=== PATIENT | female | born 1950 | race Caucasian/White ===

== ENCOUNTER → 2017-02-21 | Outpatient (CLI) | payer MEDICARE ==
[2016-11-12 16:36] VITALS: BP 138/80
--- NOTE | 2017-02-21 15:47 | RAD ---
Chest, 2 views, 02/21/2017: History: Flu syndrome, chills, sore throat Comparison is made to a study from 11/12/2016. The heart size and pulmonary vascularity are normal. There is mild tortuosity of the thoracic aorta. A calcified granuloma is present in the right upper lobe. There is mild linear atelectasis or scarring in the lung bases. The upper lung mejia are clear. There is no evidence of pleural fluid. Surgical clips are present in the upper abdomen and in the GE junction region. A right shoulder prosthesis is in place. IMPRESSION: Minimal bibasilar linear atelectasis or scarring.
== END | disposition home or self-care (01) ==
LOC: DXRADRC 15:10
PROVIDERS: ATTEND Nurse Practitioner Family
DX: J11.1 Influenza due to unidentified influenza virus with other respiratory manifestations (principal)
CPT/HCPCS: 71020

== ENCOUNTER → 2017-05-16 | Outpatient (CLI) | payer MEDICARE ==
[2016-11-12 16:36] VITALS: BP 138/80
--- NOTE | 2017-05-16 13:24 | RAD ---
EXAM: Abdomen 2 views. HISTORY: Right abdominal pain. COMPARISON: None. FINDINGS: Supine and upright views of the abdomen are obtained. There are postsurgical changes at the hiatus and in the left upper quadrant. Cholecystectomy clips are also noted. There is no pneumoperitoneum. There are no distended small bowel loops or significant air fluid levels. There is gas distally. Atherosclerotic calcifications are noted. There is mild lumbar levoscoliosis with moderate to severe degenerative changes inferiorly. IMPRESSION: 1. No evidence of obstruction.
== END | disposition home or self-care (01) ==
LOC: DXRADRC 12:03
PROVIDERS: ATTEND Nurse Practitioner Family
DX: R10.9 Unspecified abdominal pain (principal)
CPT/HCPCS: 74020

== ENCOUNTER → 2017-05-18 | Outpatient (CLI) | payer MEDICARE ==
[2016-11-12 16:36] VITALS: BP 138/80
[~2017-05-18] MED LIST: IOHEXOL 240 MG/ML 50ML VIAL. ONE; IOHEXOL 300 MG/ML 75 ML VIAL. IV ONE
[2017-05-18 08:42] LABS: CREATININE 1.1 mg/dL (0.6-1.0); GFR 49.8
--- NOTE | 2017-05-18 10:54 | RAD ---
INDICATION: Abdominal pain COMPARISON: None. TECHNIQUE: Axial CT images were obtained through the abdomen and pelvis with intravenous contrast. Coronal reformations were processed. FINDINGS: Mild linear opacities lung bases partially seen, could be atelectasis. Small hiatal hernia is suspected. Operative changes to the upper abdomen with metallic density structures. Severe calcific atherosclerosis. Mild intrahepatic and extrahepatic bile duct dilation postcholecystectomy. 58 mm cystic lesion right lobe of the liver. There are multiple additional low-attenuation lesions scattered throughout the liver measuring up to about a centimeter which are too small to characterize on this exam. No peripancreatic edema. Subcentimeter low-attenuation lesion of spleen. Low-attenuation focus along the left renal cortex posteriorly, approximately 1 cm. No hydronephrosis. Bladder is partially distended. Colonic diverticulosis. The appendix is not well seen. Suspect a tiny anterior abdominal wall hernia to the right of midline. Degenerative changes of spine with osteophyte formation. Degenerative changes of hips. Grade 1-2 anterolisthesis of L4 on 5. IMPRESSION: 1. No evidence of bowel obstruction. 2. Intrahepatic and extrahepatic biliary ductal dilatation is seen postcholecystectomy. This is a commonly seen finding post cholecystectomy but would correlate with lab markers to ensure that there is not a pathologic process such as a distal stricture or lesion. 3. Couple of cystic lesions are identified within the liver as well as some low-attenuation lesions which are too small to characterize on this exam. 4. Focus of low attenuation the posterior aspect of left kidney. Could be a small low-attenuation lesion. Follow-up nonemergent ultrasound renal or renal protocol MRI could further evaluate to ensure that this does not have a solid component. PQRS Compliance Statement: One or more of the following individualized dose reduction techniques were utilized for this examination: 1. Automated exposure control 2. Adjustment of the mA and/or kV according to patient size 3. Use of iterative reconstruction technique
== END | disposition home or self-care (01) ==
LOC: CT 07:51
PROVIDERS: ATTEND Nurse Practitioner Family
DX: K57.30 Diverticulosis of large intestine without perforation or abscess without bleeding (principal); I70.8 Atherosclerosis of other arteries; K76.89 Other specified diseases of liver
CPT/HCPCS: 36415; 74177; 82565; Q9966; Q9967

== ENCOUNTER → 2017-06-08 | Outpatient (CLI) | payer MEDICARE ==
[2016-11-12 16:36] VITALS: BP 138/80
--- NOTE | 2017-06-08 11:47 | RAD ---
CT scan abdomen with contrast 06/08/2017 Clinical history: Abdominal hernia. Technique: After the oral and intravenous administration of contrast, contiguous, 5 mm axial sections were obtained through abdomen and pelvis. 60 cc of Omnipaque 300 were administered intravenously this examination. One or more of the following individualized dose reduction techniques were utilized for this study: 1. Automated exposure control. 2. Adjustment of the mA and/or kV according to patient size. 3. Use of iterative reconstruction technique. Findings: Comparison study is dated 05/18/2017. Apparently the majority of the intravenous contrast which was injected infiltrated during the injection limiting enhancement on this study. Images through the lung bases demonstrate minimal dependent subsegmental atelectasis bilaterally. There is mild cardiomegaly. A 5.8 cm low-attenuation lesion is seen involving the right lobe of the liver. This is consistent with a hepatic cyst. It is unchanged. The spleen, pancreas, adrenal glands and right kidney are within normal limits. A 8 mm rounded low-attenuation lesion is seen involving the mid/lower pole of the left kidney. This likely represents a cyst. It is unchanged. Mild to moderate atherosclerotic plaque formation is seen involving the abdominal aorta. The abdominal aorta tapers normally. Surgical clips are seen within the gallbladder fossa consistent with a cholecystectomy. Postsurgical changes are seen surrounding the stomach. No free fluid or free air is seen within the abdomen. There is no evidence of bowel obstruction. The patient is status post ventral hernia repair. The osseous structures are unchanged. Impression: No acute abnormality is seen.
== END | disposition home or self-care (01) ==
LOC: CT 09:59
PROVIDERS: ATTEND Nurse Practitioner Family
DX: K46.9 Unspecified abdominal hernia without obstruction or gangrene (principal)
CPT/HCPCS: 74160; Q9966; Q9967

== ENCOUNTER → 2017-07-08 | Outpatient (CLI) | payer MEDICARE ==
[2016-11-12 16:36] VITALS: BP 138/80
--- NOTE | 2017-07-08 14:35 | RAD ---
Lumbar spine radiograph 07/08/2017 at 1411 hours Indication: Lumbar pain for 2 weeks. Comparison: CT abdomen 06/08/2017 Technique: 3 views of the lumbar spine are provided. Findings: There are 5 nonrib-bearing lumbar type vertebral bodies. There is disc height loss and endplate sclerosis at L5-S1. There is grade 1 anterolisthesis of L5 on S1. There is advanced facet arthropathy in the lower lumbar spine. No acute fracture is identified. There is moderate osseous neuroforaminal stenosis at L5-S1. Surgical clips are identified in the upper abdomen. Nondilated small bowel loops are present. Impression: Advanced degenerative disc disease at L5-S1 with grade 1 anterolisthesis of L5 on S1, likely secondary to advanced facet arthropathy. There is suggestion of at least moderate osseous foraminal stenosis at this level.
== END | disposition home or self-care (01) ==
LOC: DXRADRC 14:03
PROVIDERS: ATTEND Nurse Practitioner Family
DX: M51.27 Other intervertebral disc displacement, lumbosacral region (principal)
CPT/HCPCS: 72100

== ENCOUNTER → 2017-08-23 | Outpatient (CLI) | payer MEDICARE ==
[2016-11-12 16:36] VITALS: BP 138/80
== END | disposition home or self-care (01) ==
LOC: SURG 14:06
PROVIDERS: ATTEND Anesthesiology
DX: M47.816 Spondylosis without myelopathy or radiculopathy, lumbar region (principal); M43.16 Spondylolisthesis, lumbar region; M54.16 Radiculopathy, lumbar region; M79.1 Myalgia; I10 Essential (primary) hypertension; Z87.891 Personal history of nicotine dependence
CPT/HCPCS: 99204

== ENCOUNTER → 2017-09-06 | Outpatient (CLI) | payer MEDICARE ==
[2016-11-12 16:36] VITALS: BP 138/80
[~2017-09-06] MED LIST changes: +0.9 % SODIUM CHLORIDE 10 ML VIAL ONE; +BUPIVACAINE MPF 0.25% 10 ML VIAL. ONE; +DEXAMETHASONE SOD PHOS 4 MG/ML VIAL ONE; -IOHEXOL 240 MG/ML 50ML VIAL. ONE; +IOHEXOL 300 MG/ML 50 ML VIAL. ONE; -IOHEXOL 300 MG/ML 75 ML VIAL. IV ONE; +LIDOCAINE 1% PF 30 ML VIAL. ONE
== END | disposition home or self-care (01) ==
LOC: SURG 13:54
PROVIDERS: ATTEND Anesthesiology
DX: M54.16 Radiculopathy, lumbar region (principal)
CPT/HCPCS: 64483; 64484; J1100; J2001; J3490; Q9967

== ENCOUNTER → 2017-10-04 | Outpatient (CLI) | payer MEDICARE ==
[2016-11-12 16:36] VITALS: BP 138/80
== END | disposition home or self-care (01) ==
LOC: SURG 11:23
PROVIDERS: ATTEND Anesthesiology
DX: M54.16 Radiculopathy, lumbar region (principal); M47.816 Spondylosis without myelopathy or radiculopathy, lumbar region; M46.1 Sacroiliitis, not elsewhere classified; B02.29 Other postherpetic nervous system involvement; J32.9 Chronic sinusitis, unspecified; I10 Essential (primary) hypertension; Z90.710 Acquired absence of both cervix and uterus; Z90.49 Acquired absence of other specified parts of digestive tract
CPT/HCPCS: 99214

== ENCOUNTER → 2017-11-08 | Outpatient (CLI) | payer MEDICARE ==
[2016-11-12 16:36] VITALS: BP 138/80
[~2017-11-08] MED LIST changes: -0.9 % SODIUM CHLORIDE 10 ML VIAL ONE
== END | disposition home or self-care (01) ==
LOC: SURG 13:31
PROVIDERS: ATTEND Anesthesiology
DX: M54.16 Radiculopathy, lumbar region (principal); M19.90 Unspecified osteoarthritis, unspecified site; D64.9 Anemia, unspecified; Z90.710 Acquired absence of both cervix and uterus; Z87.01 Personal history of pneumonia (recurrent); Z72.89 Other problems related to lifestyle; Z88.6 Allergy status to analgesic agent
CPT/HCPCS: 64483; 64484; J1100; J2001; J3490; Q9967

== ENCOUNTER → 2017-12-13 | Outpatient (CLI) | payer MEDICARE ==
[2016-11-12 16:36] VITALS: BP 138/80
== END | disposition home or self-care (01) ==
LOC: SURG 14:34
PROVIDERS: ATTEND Anesthesiology
DX: M54.16 Radiculopathy, lumbar region (principal); I10 Essential (primary) hypertension; G89.4 Chronic pain syndrome; Z87.891 Personal history of nicotine dependence; Z90.49 Acquired absence of other specified parts of digestive tract
CPT/HCPCS: 99214

== ENCOUNTER → 2017-12-29 | Outpatient (CLI) | payer MEDICARE ==
[2016-11-12 16:36] VITALS: BP 138/80
--- NOTE | 2017-12-30 14:10 | RAD ---
DATE: 12/29/2017 EXAM: MAMMO LEE SCREENING BILATERAL HISTORY: Routine screening COMPARISON: None available This study was interpreted with the benefit of Computerized Aided Detection (CAD) The breast parenchyma shows scattered fibroglandular densities. Breast parenchyma level B. FINDINGS: 2-D and 3-D tomosynthesis imaging was performed in CC and MLO projections. The residual fibroglandular tissues are somewhat nodular in character. No suspicious breast densities are seen. Scattered benign type calcifications are present. No malignant type microcalcifications are evident. IMPRESSION: There is no mammographic evidence of malignancy in either breast. BI-RADS CATEGORY: 2 BENIGN FINDING(S) RECOMMENDED FOLLOW-UP: 12M 12 MONTH FOLLOW-UP PQRS compliance statement: Patient information was entered into a reminder system with a target due date for the next mammogram. Mammography is a sensitive method for finding small breast cancers, but it does not detect them all and is not a substitute for careful clinical examination. A negative mammogram does not negate a clinically suspicious finding and should not result in delay in biopsying a clinically suspicious abnormality. "Our facility is accredited by the [employer] Mammography Program."
== END | disposition home or self-care (01) ==
LOC: MAMMO 14:59
PROVIDERS: ATTEND Nurse Practitioner Family
DX: Z12.31 Encounter for screening mammogram for malignant neoplasm of breast (principal)
CPT/HCPCS: 77063; 77067

== ENCOUNTER → 2018-05-15 | Outpatient (CLI) | payer MEDICARE ==
[2016-11-12 16:36] VITALS: BP 138/80
--- NOTE | 2018-05-15 17:27 | RAD ---
INDICATION: Follow-up spine instrumentation. TECHNIQUE: 3 views of the lumbosacral spine are submitted for review. Comparison preoperative film is from July 08, 2017. FINDINGS: Pedicle screw and camila instrumentation is noted at L4-L5 and hardware appears well seated. There may have been partial laminectomy on the right at this level. Grade 1 anterolisthesis is noted at L4-L5, improved from prior exam. There is otherwise no change in alignment. There is no fracture. Endplate spurring and facet hypertrophy are again noted. 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 IMPRESSION: Postsurgical changes at L4-L5. Stable degenerative changes. There is no evidence of an acute fracture or dislocation. Electronically signed by: Yaw Jimenez MD (05/15/2018 5:24 PM) [facility]
== END | disposition home or self-care (01) ==
LOC: DXRAD 15:16
PROVIDERS: ATTEND Neurological Surgery
DX: M47.896 Other spondylosis, lumbar region (principal); I10 Essential (primary) hypertension; F41.9 Anxiety disorder, unspecified; Z98.890 Other specified postprocedural states; Z86.2 Personal history of diseases of the blood and blood-forming organs and certain disorders involving the immune mechanism; Z87.891 Personal history of nicotine dependence; Z90.49 Acquired absence of other specified parts of digestive tract; Z90.710 Acquired absence of both cervix and uterus
CPT/HCPCS: 72100

== ENCOUNTER → 2018-10-09 | Outpatient (CLI) | payer OTHER ==
[2016-11-12 16:36] VITALS: BP 138/80
--- NOTE | 2018-10-09 16:33 | RAD ---
Renal sonography Clinical indications: Follow-up of renal cyst. COMPARISON: June 08, 2017 CT study. FINDINGS: The longitudinal and AP and transverse dimensions of the right kidney are 10.7 cm and 5.6 cm and 5.2 cm respectively. The longitudinal AP and transverse dimensions of the left kidney are 9.5 cm and 5.4 cm and 5.0 cm respectively. There is a small lower pole left renal cyst measuring 7 mm in greatest dimension. No other renal mass is seen. No hydronephrosis or perinephric fluid collection is seen on either side. The urinary bladder is mildly distended measuring 59 cc. No intraluminal echodensities or masses are seen. IMPRESSION: No significant change in size of small cyst of the lower pole of the left kidney. Electronically signed by: Stephen Espinosa MD (10/09/2018 4:29 PM) [facility]
== END | disposition home or self-care (01) ==
LOC: US 08:52
PROVIDERS: ATTEND Urology
DX: N28.1 Cyst of kidney, acquired (principal); N32.89 Other specified disorders of bladder
CPT/HCPCS: 76770

== ENCOUNTER → 2018-12-26 | Outpatient (CLI) | payer OTHER ==
[2016-11-12 16:36] VITALS: BP 138/80
--- NOTE | 2018-12-26 11:04 | RAD ---
EXAM: Right hip, 2 views. HISTORY: Pain. COMPARISON: None. FINDINGS: 2 views of the right hip are obtained. There is severe superior right hip joint space narrowing with subchondral sclerosis, subchondral cyst formation, marginal osteophytosis and bony remodeling. There is no fracture, dislocation or subluxation. There are clips within the right inguinal region. There is partial visual location of lumbar spinal fusion instrumentation. IMPRESSION: 1. Severe right hip osteoarthritis with associated bony remodeling. 2. No acute osseous finding. Electronically signed by: Sierra Harrison MD (12/26/2018 11:01 AM) [place] [id number]
== END | disposition home or self-care (01) ==
LOC: PMG 10:28
PROVIDERS: ATTEND Physician Assistant Medical
DX: M16.11 Unilateral primary osteoarthritis, right hip (principal); M25.851 Other specified joint disorders, right hip; M25.751 Osteophyte, right hip
CPT/HCPCS: 73502

== ENCOUNTER → 2019-06-26 | Outpatient (CLI) | payer MEDICARE ==
[2016-11-12 16:36] VITALS: BP 138/80
--- NOTE | 2019-06-26 23:32 | RAD ---
FOOT LEFT 3V DATE: 06/26/2019 6:34 PM INDICATION: Foot pain COMPARISON: None. FINDINGS: Bones: There is no evidence of acute fracture or dislocation. Postoperative changes along the medial aspect of the first metatarsal head. Joints: Mild multifocal joint space narrowing Miscellaneous: None. IMPRESSION: No evidence of acute fracture. Electronically signed by: Avi Licea MD (06/26/2019 11:29 PM) [id number]
== END | disposition home or self-care (01) ==
LOC: RAD 18:28
PROVIDERS: ATTEND Family Medicine
DX: M79.672 Pain in left foot (principal)
CPT/HCPCS: 73630

== ENCOUNTER 2019-07-02 13:04 | Emergency (ER) | payer MEDICARE ==
[~2019-07-02] VITALS: Ht 157.5 cm; Wt 88.0 kg
[2019-07-02] MEDS ORDERED: HYDR-3165 PO (13:42)
--- NOTE | 2019-07-02 13:43 | PHYS DOC ---
Past History Past Medical History: CVA, [place], Other Past Surgical History: Cholecystectomy, Hysterectomy, Other Alcohol Use: None Drug Use: None Adult General Chief Complaint Chief Complaint: KNEE SWELLING [facility] HPI 69-year-old female presents with left knee pain. The patient has had chronic knee problems in the past. She has had intermittent swelling in this knee over the last several days. She has been wrapping it with an Pranav wrap. The patient worked 8 hours yesterday. 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 When she tried to urinate go to work and put weight on the knee, the pain was just more than she can handle. She has been taking 6 ibuprofen at a time. She is also taking Tylenol. She did take one tramadol last night that she had left from a previous prescription. It allowed her to go to sleep but she still had pain while lying in bed. She denies fall or trauma. She is overweight. She has had her right hip replaced and her right shoulder. She had no trauma prior to these either. She has not had any imaging of the knee. She denies fever or chills. Review of Systems Review of Systems Constitutional: Denies fever or chills [] Eyes: Denies change in visual acuity, redness, or eye pain [] HENT: Denies nasal congestion or sore throat [] Respiratory: Denies cough or shortness of breath [] Cardiovascular: No additional information not addressed in HPI [] GI: Denies abdominal pain, nausea, vomiting, bloody stools or diarrhea [] : Denies dysuria or hematuria [] Musculoskeletal: Left knee pain[] Integument: Denies rash or skin lesions [] Neurologic: Denies headache, focal weakness or sensory changes [] Endocrine: Denies polyuria or polydipsia [] All other systems were reviewed and found to be within normal limits, except as documented in this note. Allergies Allergies Allergies Coded Allergies Type Severity Reaction Last Updated Verified codeine Allergy Intermediate 07/02/19 Yes Physical Exam Physical Exam Constitutional: Well developed, well nourished, no acute distress, non-toxic appearance. [] HENT: Normocephalic, atraumatic, bilateral external ears normal, oropharynx moist, no oral exudates, nose normal. [] Eyes: PERRLA, EOMI, conjunctiva normal, no discharge. [] Neck: Normal range of motion, no tenderness, supple, no stridor. [] Cardiovascular:Heart rate regular rhythm, no murmur [] Lungs & Thorax: Bilateral breath sounds clear to auscultation [] Abdomen: Bowel sounds normal, soft, no tenderness, no masses, no pulsatile masses. [] Skin: Warm, dry, no erythema, no rash. [] Back: No tenderness, no CVA tenderness. [] Extremities: Tenderness on the medial aspect of the left knee. Some swelling. No ecchymosis. Ligaments have solid end feel. No pain with varus and valgus stress.[] Neurologic: Alert and oriented X 3, normal motor function, normal sensory f unction, no focal deficits noted. [] Psychologic: Affect normal, judgement normal, mood normal. [] Current Patient Data Vital Signs Vital Signs Date Time Temp Pulse Resp B/P (MAP) Pulse Ox O2 Delivery O2 Flow Rate FiO2 07/02/19 13:14 97.9 78 20 100 Room Air EKG EKG [] Radiology/Procedures Radiology/Procedures [] Course & Med Decision Making Course & Med Decision Making Pertinent Labs and Imaging studies reviewed. (See chart for details) The patient's x-rays negative for acute findings. She does well throughout his. I will discharge her on a short course of Alta 5/325 for her pain. If it does not resolve within a couple days, she should seek orthopedic follow-up. She is stable for discharge at this time. [] Dragon Disclaimer Dragon Disclaimer This electronic medical record was generated, in whole or in part, using a voice recognition dictation system. Departure Departure: Impression: Primary Impression: Left medial knee pain Disposition: 01 HOME, SELF-CARE Condition: STABLE Referrals: REBEL CRABTREE (PCP) Patient Instructions: Knee Pain, [id number] Scripts Hydrocodone Bit/Acetaminophen (NORCO 5-325 TABLET) 1 Each Tablet 1 TAB PO PRN Q6HRS PRN for PAIN, #10 TAB 0 Refills Prov: BLADIMIR LESTER DO 07/02/19 BLADIMIR LESTER DO Jul 02, 2019 13:43
[2019-07-02 14:23] VITALS: BP 131/86
--- NOTE | 2019-07-02 14:41 | RAD ---
4 view left knee HISTORY: Pain and swelling, no trauma FINDINGS: Mild osteophytes about the left knee without substantial loss of joint space height. No evidence of acute fracture. No aggressive bone destruction. Alignment intact. Multiple soft tissue calcifications in the lower leg particularly anteriorly are likely vascular. IMPRESSION: Mild degenerative change. Electronically signed by: Guru Thompson MD (07/02/2019 2:38 PM) [facility]
== END 2019-07-02 14:23 | disposition home or self-care (01) ==
LOC: ER 13:04
DX: M25.562 Pain in left knee (principal); R22.42 Localized swelling, mass and lump, left lower limb; I25.2 Old myocardial infarction; Z88.5 Allergy status to narcotic agent; Z86.73 Personal history of transient ischemic attack (TIA), and cerebral infarction without residual deficits
CPT/HCPCS: 73564; 99284

== ENCOUNTER 2019-07-14 17:16 | Emergency (ER) | payer MEDICARE ==
[~2019-07-14] VITALS: Ht 157.5 cm; Wt 92.4 kg
[~2019-07-14 17:16] MED LIST changes: -BUPIVACAINE MPF 0.25% 10 ML VIAL. ONE; -DEXAMETHASONE SOD PHOS 4 MG/ML VIAL ONE; +HYDR-3165 PO; -IOHEXOL 300 MG/ML 50 ML VIAL. ONE; -LIDOCAINE 1% PF 30 ML VIAL. ONE
--- NOTE | 2019-07-14 17:35 | PHYS DOC ---
Past History Past Medical History: CVA, [place], Other Past Surgical History: Cholecystectomy, Hysterectomy, Other Alcohol Use: None Drug Use: None Adult General Chief Complaint Chief Complaint: NEURO SYMPTOMS/DEFICITS HPI HPI Patient is a 69-year-old female presents with difficulty speaking similar to her previous stroke in 2014. This started at 1630 today she was at work. No weakness in the arms or legs. She is currently on Plavix. No chest pain or palpitations. No nausea or vomiting. No headache.[] Review of Systems Review of Systems Constitutional: Denies fever or chills [] Eyes: Denies change in visual acuity, redness, or eye pain [] HENT: Denies nasal congestion or sore throat [] Respiratory: Denies cough or shortness of breath [] Cardiovascular: No chest pain or palpitations[] GI: Denies abdominal pain, nausea, vomiting, bloody stools or diarrhea [] : Denies dysuria or hematuria [] Musculoskeletal: Denies back pain or joint pain [] Integument: Denies rash or skin lesions [] Neurologic: See history of present illness[] Endocrine: Denies polyuria or polydipsia [] All other systems were reviewed and found to be within normal limits, except as documented in this note. Allergies Allergies Allergies Coded Allergies Type Severity Reaction Last Updated Verified codeine Allergy Intermediate 07/02/19 Yes Physical Exam Physical Exam Constitutional: Well developed, well nourished, no acute distress, non-toxic appearance. [] HENT: Normocephalic, atraumatic, bilateral external ears normal, oropharynx moist, no oral exudates, nose normal. [] Eyes: PERRLA, EOMI, conjunctiva normal, no discharge. [] Neck: Normal range of motion, no tenderness, supple, no stridor. [] Cardiovascular:Heart rate regular rhythm, no murmur [] Lungs & Thorax: Bilateral breath sounds clear to auscultation [] Abdomen: Bowel sounds normal, soft, no tenderness, no masses, no pulsatile masses. [] Skin: Warm, dry, no erythema, no rash. [] Back: No tenderness, no CVA tenderness. [] Extremities: No tenderness, no cyanosis, no clubbing, ROM intact, no edema. [] Neurologic: Alert and oriented X 3, see NIH SS[] Psychologic: Affect normal, judgement normal, mood normal. [] EKG EKG [] Radiology/Procedures Radiology/Procedures [] Course & Med Decision Making Course & Med Decision Making Pertinent Labs and Imaging studies reviewed. (See chart for details) ED course: Patient arrived on EMS cot and was taken directly to CT scan. On e valuation her NIH was 3 due to the stuttering speech/dysarthria. She was able to recognize what was going on in the picture. However other point was from left- sided facial droop. Discussion with Dr. Fritz at , given that her NIH is 3 and this is not a severely debilitating process, recommendation was against TPA. Aspirin was administered. Patient care discussed with Dr. Kelsey as the hospitalist service and patient being transferred to [place] given their higher level of care, MRI, and her neurologist is also at [facility]. Medical decision making: Patient with symptoms similar to her previous stroke but no NIH stroke scale of 3, not a good candidate for TPA given that this is not a debilitating issue and the low level of her NIH stroke scale. Patient is being transferred to higher level of care. Patient care was also endorsed to the oncoming physician at 1800 with laboratory testing pending[] Dragon Disclaimer Dragon Disclaimer This electronic medical record was generated, in whole or in part, using a voice recognition dictation system. Departure Departure: Impression: Primary Impression: CVA (cerebral vascular accident) Disposition: 05 TRANSFER OTHER Admitting Physician: Driss Kelsey Condition: IMPROVED Referrals: REBEL CRABTREE (PCP) NIHSS - ED NIH Stroke Scale: NIH Stroke Scale Response (Comments) Value Level of Consciousness: 0 Alert/Responsive 0 LOC Questions: 0 Answers both correctly 0 LOC Commands: 0 Performs both tasks 0 Best Gaze: 0 Normal 0 Visual: 0 No visual loss 0 Facial Palsy: 1 Minor paralysis (LEFT SIDED) 1 Motor - Left Arm 0 No drift 0 Motor - Right Arm 0 No drift 0 Motor - Left Leg 0 No drift 0 Motor: Right Leg 0 No drift 0 Limb Ataxia: 0 Absent 0 Sensory: 0 No loss 0 Dysathria: 2 Severe 2 Extinction and Inattention: 0 Normal 0 Total 3 Problem Qualifiers Primary Impression: CVA (cerebral vascular accident) CVA mechanism: unspecified Qualified Codes: I63.9 - Cerebral infarction, unspecified CLIFFORD SALAZAR DO Jul 14, 2019 17:35
[2019-07-14] MEDS ORDERED: ALTEPLASE 0 MG IV ONE (17:42)
--- NOTE | 2019-07-14 17:42 | RAD ---
CT CODE STROKE HEAD WO dated 07/14/2019 5:18 PM Indication: Weakness slurred speech history of stroke in 2014. Comparison: 11/12/2016 Technique: Contiguous axial imaging the head was performed from skull base to vertex. No contrast administered. One or more of the following individualized dose reduction techniques were utilized for this examination: 1. Automated exposure control 2. Adjustment of the mA and/or kV according to patient size 3. Use of iterative reconstruction technique Findings: Ventricles and sulci are mildly prominent for age. No midline shift or mass effect. There is moderate patchy low density throughout the deep/subcortical periventricular white matter. No hemorrhage or extra-axial collection. Posterior fossa and brainstem unremarkable. Visually paranasal sinuses and mastoid air cells are clear. No apparent calvarial abnormality. IMPRESSION: 1. No evidence of acute intracranial hemorrhage or mass. 2. Moderate chronic small vessel ischemic changes and atrophy. 3. No CT evidence of acute CVA. If there is persistent clinical concern for evolving infarct, MRI could better evaluate. Results discussed with ER physician at approximately 5:38 PM on the day of the study. FOR INTERNAL CODING PURPOSES RESULT CODE: C Electronically signed by: Guru Jain MD (07/14/2019 5:39 PM) [id number]
--- NOTE | 2019-07-14 17:57 | EKG ---
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
[2019-07-14 18:10] LABS: BASO % 1 % (0-3); EOS # 0.3 x10^3/uL (0.0-0.7); EOS % 5 % (0-3); HEMATOCRIT 35.2 % (36.0-47.0); HEMOGLOBIN 11.2 g/dL (12.0-15.5); LYMPH % 16 % (24-48); MEAN CORPUSCULAR HEMOGLOBIN 27 pg (25-35); MEAN CORPUSCULAR HGB CONC 32 g/dL (31-37); MEAN CORPUSCULAR VOLUME 86 fL (79-100); MONO # 0.5 x10^3/uL (0.0-1.1); MONO % 9 % (0-9); NEUT # 4.2 x10^3uL (1.8-7.7); NEUT % 70 % (31-73); PLATELET COUNT 272 x10^3/uL (140-400); RED BLOOD COUNT 4.11 x10^6/uL (3.50-5.40); RED CELL DISTRIBUTION WIDTH 21.2 % (11.5-14.5); WHITE BLOOD COUNT 6.1 x10^3/uL (4.0-11.0)
[2019-07-14 18:22] LABS: ALBUMIN 3.8 g/dL (3.4-5.0); ALBUMIN/GLOBULIN RATIO 1.2 (1.0-1.7); CALCIUM 9.3 mg/dL (8.5-10.1); GFR 55.1; POTASSIUM 4.4 mmol/L (3.5-5.1); TOTAL BILIRUBIN 0.5 mg/dL (0.2-1.0); TOTAL PROTEIN 7.1 g/dL (6.4-8.2)
[2019-07-14] MEDS ORDERED: ASPIRIN 81 MG TAB.CHEW PO ONE (18:30)
[2019-07-14] MEDS ORDERED: ASPIRIN RECTAL 300 MG SUPP. PR ONE (18:30)
[2019-07-14 18:43] LABS: BACTERIA,URINE 0 /HPF (0-FEW); BILIRUBIN,URINE NEG (NEG); CLARITY,URINE HAZY; COLOR,URINE AMBER; GLUCOSE,URINE NEG (NEG); NITRITE,URINE POS (NEG); RBC,URINE 0 /HPF (0-2); SQUAMOUS EPITHELIAL CELL,UR OCC /LPF; UROBILINOGEN,URINE 0.2 mg/dL (0.2 mg/dL)
--- NOTE | 2019-07-14 19:07 | RAD ---
CHEST AP ONLY Clinical Indication: Stroke Comparison: 02/21/2017 two-view chest x-ray exam. Findings: The cardiomediastinal silhouette is normal. Lungs are clear. There is no pneumothorax. No pleural effusion is appreciated. No acute bone abnormality. Right shoulder joint prosthesis is partially visualized. Epigastric surgical clips are present. Surgical clips extend into the left subdiaphragmatic region. IMPRESSION: No acute cardiopulmonary process. Electronically signed by: Andrea Mcclendon MD (07/14/2019 7:04 PM) [facility]
[2019-07-14 19:16] LABS: ANISOCYTOSIS SLIGHT; PLT ESTIMATE INCREASED (ADEQUATE); SCHISTOCYTES OCC
[2019-07-14 22:29] VITALS: BP 124/72
== END 2019-07-14 22:38 | disposition short-term general hospital (02) ==
LOC: ER 17:16
DX: I63.9 Cerebral infarction, unspecified (principal); R47.01 Aphasia; R29.810 Facial weakness; Z86.73 Personal history of transient ischemic attack (TIA), and cerebral infarction without residual deficits; I25.2 Old myocardial infarction; Z88.5 Allergy status to narcotic agent
CPT/HCPCS: 36415; 70450; 71045; 80053; 81001; 84484; 85025; 85610; 85730; 93005; 96374; 99285; J2060

== ENCOUNTER → 2019-10-18 | Outpatient (CLI) | payer MEDICARE ==
--- NOTE | 2019-10-18 12:16 | RAD ---
EXAM: Chest, 2 views. HISTORY: Cough. COMPARISON: 07/14/2019 FINDINGS: 2 views of the chest are obtained. There is suspected bilateral basilar atelectasis or interstitial infiltrate. There is no consolidation, pleural effusion or pneumothorax. The heart is normal in size. There is a calcified granuloma within the right upper lobe. There are surgical clips within the upper abdomen. There is a right shoulder arthroplasty. IMPRESSION: Bilateral basilar atelectasis or interstitial infiltrate. Electronically signed by: Sierra Harrison MD (10/18/2019 12:13 PM) [place] [id number]
== END | disposition home or self-care (01) ==
LOC: PMG 11:02
PROVIDERS: ATTEND Registered Nurse
DX: J84.10 Pulmonary fibrosis, unspecified (principal)
CPT/HCPCS: 71046

== ENCOUNTER → 2019-10-25 | Outpatient (CLI) | payer MEDICARE ==
--- NOTE | 2019-10-25 16:14 | RAD ---
CHEST PA LATERAL History: Cough Comparison: 10/18/2019 two-view chest x-ray exam. Findings: Frontal and lateral views of chest were obtained. The cardiomediastinal silhouette is normal. Pulmonary vasculature is normal. The lungs are clear. No pleural effusion or pneumothorax is seen. There is no acute bone abnormality. Right shoulder joint prosthesis is partially seen. A calcified granuloma present at the right upper lung. Left upper quadrant/epigastric surgical clips. Right upper quadrant surgical clips. IMPRESSION: No acute cardiopulmonary process. Electronically signed by: Andrea Mcclendon MD (10/25/2019 4:12 PM) [facility]
== END | disposition home or self-care (01) ==
LOC: PMG 15:20
PROVIDERS: ATTEND Registered Nurse
DX: J98.4 Other disorders of lung (principal); J84.10 Pulmonary fibrosis, unspecified; J98.11 Atelectasis
CPT/HCPCS: 71046

== ENCOUNTER → 2021-03-17 | Outpatient (CLI) | payer MEDICARE, OTHER ==
[~2021-03-17] MED LIST changes: +REGADENOSON 0.4 MG/5 ML DISP.SYRIN. IV ONE
--- NOTE | 2021-03-17 14:05 | RAD ---
MR#: [id number] Date of Study: 03/17/2021 Ordering Physician: TUSHAR BOSWELL, Referring Physician: LUIS JUÁREZ Tech: RT Nerissa (R) (N) APPROVED REPORT Test Type: Pharmacological Stress Nurse/Tech: Fabio/Gabino Test Indications: Dyspnea Cardiac History: See Electronic Medical Record Medical History: See EHR Resting Heart Rate: 58 bpm Resting Blood Pressure: 128/64mmHg Pretest Chest Pain: No chest pain Pharm. Details Pharmacologic stress testing was performed using 0.4mg per 5ml of regadenoson given intravenously ove r 7-10 seconds. Stress Symptoms Dyspnea POST EXERCISE Reason for Termination: Infusion complete Max HR: 80 bpm Max Blood Pressure: 115/61mmHg Blood Pressure response to exercise: Normal blood pressure response during stress. Heart Rate response to exercise: Increased Chest Pain: No. Arrhythmia: No. ST Change: No. INTERPRETATION Stress EKG Conclusion: Baseline EKG showed sinus rhythm. No ischemic changes at peak stress. No arr hythmias. Imaging Protocol IMAGE PROTOCOL: Rest Tc-99m/stress Tc-99m 1 day Rest: Stress: Viability: Radiopharm.Tc99m IgwryolicRr12j Sestamibi Ixas76bXb 32.5mCi Duration 15min. 15min. Img Date 03/17/2021 03/17/2021 Inj-Img Yjuy22fgv. 60min. Rest Admin Site:IV - Right HandAdministrator: RT Nerissa (R)(N) Stress Admin Site: IV - Right HandAdministrator: RT Nerissa (R)(N) STRESS DATA End Diast. Vol.82.0mlAv. Heart Rate81.0bpm End Syst. Vol.7.0mlCO Index BSA0.0L/min Myocardial Mcqv370.0gEject. Mjtuwque81.0% Stress Rates Pk. Fill Rate2.91EDV/secLVtime Pk. Fill 99.91msec Pk. Empty Rate5.04ESV/secLVtime Pk. Utryh392.61msec 11/02 Pk. Fill1.86EDV/sec Stress Scores Regional WT0.00Summed WT0.00 Regional WM0.00Summed WM0.00 Study quality was good. Left Ventricular size was Normal at Rest and Stress. Lung uptake was . Left Ventricular ejection fraction is >80%. The rest and stress images show normal perfusion, normal contraction and thickening. LV Perf. Quant 17 Seg. SSS2.00 17 Seg. SRS0.00 17 Seg. SDS2.00 Stress Defect Extent (% LAD)0.00Rest Defect Extent (% LAD)0.00Rev. Defect Extent (% LAD)0.00 Stress Defect Extent (% LCX) 15.00Rest Defect Extent (% LCX)0.00Rev. Defect Extent (% LCX)15.00 Stress Defect Extent (% RCA)0.00Rest Defect Extent (% RCA)0.00Rev. Defect Extent (% RCA)0.00 Stress Defect Extent (% ZOE)2.60Rest Defect Extent (% ZOE)0.00Rev. Defect Extent (% ZOE)2.60 Conclusion 1. Regadenoson cardioisotope stress test did not show any evidence of ischemia or infarct. 2. Normal left ventricular systolic function with ejection fraction calculated at >80%. 3. Low risk for cardiac events. Signed by : Sylvain Terrazas, Electronically Approved : 03/17/2021 14:05:18
--- NOTE | 2021-03-17 14:07 | CARD ---
MR#: [id number] Date of Study: 03/17/2021 Ordering Physician: TUSHAR BOSWELL, Referring Physician: TUSHAR BOSWELL, Tech: Cindy Foley, [facility] APPROVED REPORT EXAM: Two-dimensional and M-mode echocardiogram with Doppler and color Doppler. Other Information Quality : AverageHR: 81bpm INDICATION Dyspnea RISK FACTORS Hyperlipidemia 2D DIMENSIONS RVDd3.3 (2.9-3.5cm)Left Atrium(2D)3.3 (1.6-4.0cm) IVSd1.0 (0.7-1.1cm)Aortic Root(2D)3.2 (2.0-3.7cm) LVDd4.3 (3.9-5.9cm)LVOT Diameter2.0 (1.8-2.4cm) PWd0.8 (0.7-1.1cm)LVDs3.3 (2.5-4.0cm) FS (%) 23.7 %SV39.9 ml LVEF(%)47.6 (>50%) Aortic Valve AoV Peak Florin.148.7cm/sAoV VTI28.0cm AO Peak GR.8.8mmHgLVOT Peak Florin.132.0cm/s LVOT VTI 25.44cmAO Mean GR.5mmHg WALLACE (VMAX)2.55oi7CLD (VTI)2.82cm2 Mitral Valve MV E Uzcsynno84.1cm/sMV DECEL SWBT503rh MV A Xxbkblir99.1cm/sE/A Ratio0.7 Pulmonary Valve PV Peak Dfafhbze987.9cm/sPV Peak Grad.6mmHg Tricuspid Valve RAP XUMLVFUP8hgAqGV Peak Gr.20mmHg QQGG91zdZb Pulmonary Vein S1 Wjmgwyky01.8cm/sD2 Wpedhhoq14.7cm/s LEFT VENTRICLE The left ventricle is normal size. There is normal left ventricular wall thickness. The left ventricu lar systolic function is normal. The Ejection Fraction is 60-65%. There is normal LV segmental wall m otion. Transmitral Doppler flow pattern is Grade I-abnormal relaxation pattern. RIGHT VENTRICLE The right ventricle is normal size. The right ventricle is borderline hypertrophied. The right ventri cular systolic function is normal. ATRIA The left atrium size is normal. The right atrium is borderline dilated. The interatrial septum is int act with no evidence for an atrial septal defect or patent foramen ovale as noted on 2-D or Doppler i maging. AORTIC VALVE The aortic valve is normal in structure and function. Doppler and Color Flow revealed no significant aortic regurgitation. There is no significant aortic valvular stenosis. Calculated aortic valve area is 2.8 cm2 with maximum pressure gradient of 9 mmHg and mean pressure gradient of 5 mmHg. MITRAL VALVE The mitral valve is normal in structure and function. There is no evidence of mitral valve prolapse. There is no mitral valve stenosis. Doppler and Color-flow revealed trace mitral regurgitation. TRICUSPID VALVE The tricuspid valve is normal in structure and function. Doppler and Color Flow revealed trace tricus pid regurgitation with an estimated PAP of 23 mmHg. There is no tricuspid valve stenosis. PULMONIC VALVE The pulmonic valve is not well visualized. Doppler and Color Flow revealed trace pulmonic valvular re gurgitation. GREAT VESSELS The aortic root is normal in size. The IVC is normal in size and collapses >50% with inspiration. PERICARDIAL EFFUSION There is no evidence of significant pericardial effusion. Critical Notification Critical Value: No <Conclusion> The left ventricular systolic function is normal. The Ejection Fraction is 60-65%. There is normal LV segmental wall motion. Transmitral Doppler flow pattern is Grade I-abnormal relaxation pattern. Trace mitral regurgitation. Trace tricuspid regurgitation with an estimated PAP of 23 mmHg. There is no evidence of significant pericardial effusion. Signed by : Sylvain Terrazas, Electronically Approved : 03/17/2021 14:06:57
== END ==
LOC: NM 07:39
PROVIDERS: ATTEND Internal Medicine Cardiovascular Disease
DX: I51.7 Cardiomegaly (principal)
CPT/HCPCS: 78452; 93017; 93306; A9500; J2785

== ENCOUNTER → 2021-05-15 | Outpatient (CLI) | payer MEDICARE, OTHER ==
[~2021-05-15] MED LIST changes: +IOHEXOL 240 MG/ML 50ML VIAL. ONE; +IOHEXOL 240 MG/ML 50ML VIAL. PO ONE; +IOHEXOL 300 MG/ML 75 ML VIAL. IV ONE; -REGADENOSON 0.4 MG/5 ML DISP.SYRIN. IV ONE
[2021-05-15 15:36] LABS: BASO % 1 % (0-3); EOS # 0.2 x10^3/uL (0.0-0.7); EOS % 3 % (0-3); HEMATOCRIT 41.6 % (36.0-47.0); HEMOGLOBIN 13.8 g/dL (12.0-15.5); LYMPH # 1.5 x10^3/uL (1.0-4.8); LYMPH % 26 % (24-48); MEAN CORPUSCULAR HEMOGLOBIN 32 pg (25-35); MEAN CORPUSCULAR HGB CONC 33 g/dL (31-37); MEAN CORPUSCULAR VOLUME 96 fL (79-100); MONO # 0.5 x10^3/uL (0.0-1.1); MONO % 9 % (0-9); NEUT # 3.6 x10^3uL (1.8-7.7); NEUT % 62 % (31-73); PLATELET COUNT 196 x10^3/uL (140-400); RED BLOOD COUNT 4.33 x10^6/uL (3.50-5.40); RED CELL DISTRIBUTION WIDTH 15.6 % (11.5-14.5); WHITE BLOOD COUNT 5.8 x10^3/uL (4.0-11.0)
[2021-05-15 15:43] LABS: ALBUMIN 3.9 g/dL (3.4-5.0); ALBUMIN/GLOBULIN RATIO 1.3 (1.0-1.7); CALCIUM 8.9 mg/dL (8.5-10.1); CREATININE 0.6 mg/dL (0.6-1.0); GFR 99.1; POTASSIUM 4.7 mmol/L (3.5-5.1); TOTAL BILIRUBIN 0.8 mg/dL (0.2-1.0)
--- NOTE | 2021-05-15 16:31 | RAD ---
CT of the abdomen and pelvis with contrast 05/15/2021 4:27 PM Indication: Reason: RUQ PAIN / Spl. Instructions: DRINKING [id number] / History: Comparison study: None Technique: Multidetector CT imaging of the abdomen and pelvis was performed following the administrat ion of IV contrast. Findings: The partially visualized lung bases demonstrate no acute abnormality. The spleen, bilateral adrenal glands, bilateral kidneys, and pancreas, demonstrate no acute abnormal ity.. Cholecystectomy noted. Largest hepatic cyst is decreased in the interim. Other smaller cysts pe rsist. There is no bowel obstruction. No evidence of acute inflammatory change involving visualized b owel is identified. Distal colonic diverticulosis noted. Postoperative changes following probable gas tric bypass noted. Bladder is grossly unremarkable. No free fluid or free air is seen in the abdomen or pelvis. No acute osseous changes are identified. Impression: No evidence of acute intra-abdominal abnormality is identified CT DOSING PQRS STATEMENT: One or more of the following individualized dose reduction techniques were utilized for this examinat ion: 1. Automated exposure control 2. Adjustment of the mA and/or kV according to patient size 3. Use of iterative reconstruction technique Electronically signed by: Esteban Ramey MD (05/15/2021 4:28 PM) [id number]
== END ==
LOC: CT 14:59
PROVIDERS: ATTEND Nurse Practitioner Family
DX: K57.30 Diverticulosis of large intestine without perforation or abscess without bleeding (principal); K76.89 Other specified diseases of liver; R10.11 Right upper quadrant pain
CPT/HCPCS: 36415; 74177; 80053; 82150; 83690; 85025; Q9966; Q9967

== ENCOUNTER → 2021-09-02 | Outpatient (CLI) | payer MEDICARE, OTHER ==
[~2021-09-02] MED LIST changes: -IOHEXOL 240 MG/ML 50ML VIAL. ONE; -IOHEXOL 240 MG/ML 50ML VIAL. PO ONE; -IOHEXOL 300 MG/ML 75 ML VIAL. IV ONE
== END ==
LOC: LAB 15:08
PROVIDERS: ATTEND Internal Medicine Cardiovascular Disease
DX: E78.5 Hyperlipidemia, unspecified (principal)
CPT/HCPCS: 80061

== ENCOUNTER → 2021-09-29 | Outpatient (CLI) | payer MEDICARE, OTHER ==
--- NOTE | 2021-09-29 15:27 | RAD ---
EXAMINATION: XR CHEST 2V CLINICAL HISTORY: COPD EXAM DATE/TIME: 09/29/2021 2:14 PM COMPARISON: 10/25/2019 FINDINGS: Lines, Tubes, and Devices: None. Cardiomediastinal Silhouette: Normal heart size. Aortic atherosclerotic calcification. Lungs and Pleura: No evidence of focal airspace consolidation or pleural effusion. Old calcified gran uloma in the right upper lung zone, similar to prior study. Pulmonary vasculature unremarkable. Bones and Soft Tissues: Degenerative changes in the thoracic spine. Partially visualized right revers e total shoulder arthroplasty. Epigastric surgical clips. IMPRESSION: No evidence of acute cardiopulmonary abnormality or significant interval change. Electronically signed by: Damian Ortega DO (09/29/2021 3:25 PM) [id number]
== END ==
LOC: RAD 14:07
PROVIDERS: ATTEND Internal Medicine Pulmonary Disease
DX: I70.0 Atherosclerosis of aorta (principal); M47.814 Spondylosis without myelopathy or radiculopathy, thoracic region; J44.9 Chronic obstructive pulmonary disease, unspecified; Z96.611 Presence of right artificial shoulder joint
CPT/HCPCS: 71046

== ENCOUNTER → 2021-11-09 | Outpatient (CLI) | payer MEDICARE, OTHER ==
--- NOTE | 2021-11-09 14:20 | RAD ---
CT THORAX WO History: Short of breath, cough. Comparison: CT chest 08/31/2016. Technique: Noncontrast CT of the chest. Findings: Assessment is limited by lack of IV contrast. Cardiovascular: Ascending aorta measures 3.9 cm diameter. Mild to moderate aortic calcification. Hear t size is normal. There is mild coronary artery calcification. No pericardial effusion. Mediastinum and doris: Calcified mediastinal and hilar lymph nodes. Thyroid and esophagus are unremark able. Airways, lungs and pleura: Minimal bronchial wall thickening. Mild emphysematous change. There is min imal diffuse subpleural reticulation, perhaps minimally increased from 2016. Calcified right upper lo be pulmonary parenchymal granuloma. No significant airspace consolidation. Upper abdomen: Cholecystectomy clips. Postsurgical changes of the stomach and splenic hilum. Osseous structures and soft tissues: Reverse right shoulder arthroplasty. No acute osseous abnormalit y. Impression: 1. Mild emphysema and bronchial wall thickening compatible with COPD. 2. Mild diffuse subpleural reticulations, likely senescent fibrotic changes. ------ Exposure: One or more of the following individualized dose reduction techniques were utilized for thi s examination: 1. Automated exposure control 2. Adjustment of the mA and/or kV according to patient size 3. Use of iterative reconstruction technique. Electronically signed by: Naseem Reddy MD (11/09/2021 2:18 PM) [facility]
== END ==
LOC: CT 13:24
PROVIDERS: ATTEND Internal Medicine Pulmonary Disease
DX: J43.9 Emphysema, unspecified (principal); J84.10 Pulmonary fibrosis, unspecified; I70.0 Atherosclerosis of aorta; R59.0 Localized enlarged lymph nodes
CPT/HCPCS: 71250

== ENCOUNTER → 2021-12-07 | Outpatient (CLI) | payer MEDICARE, OTHER ==
--- NOTE | 2021-12-07 15:03 | RAD ---
Chest, PA and Lateral: Technique: PA and lateral views of the chest were obtained. History: Shortness of breath Comparison: 09/29/2021. Findings: The cardiomediastinal silhouette grossly appears unremarkable. Mild bibasilar lung atelectasis or in filtrates.. Impression: Mild bibasilar lung atelectasis or infiltrates. Electronically signed by: Amando Ervin MD (12/07/2021 3:01 PM) [id number]
== END ==
LOC: RAD 14:23
PROVIDERS: ATTEND Nurse Practitioner Family
DX: J98.11 Atelectasis (principal); R06.02 Shortness of breath; J44.9 Chronic obstructive pulmonary disease, unspecified
CPT/HCPCS: 71046

== ENCOUNTER → 2022-01-04 | Outpatient (CLI) | payer MEDICARE, OTHER ==
[~2022-01-04] MED LIST changes: +IOHEXOL 350 MG/ML 100 ML VIAL. IV ONE
--- NOTE | 2022-01-04 09:23 | RAD ---
Examination: CT angiography chest with IV contrast HISTORY: History of shortness of breath, chest pain, back pain, history of Covid COMPARISON: 11/09/2019 TECHNIQUE: Axial CT angiographic images of chest were performed with IV contrast. Coronal and sagitta l 3-D MIP reformats performed Exposure: One or more of the following individualized dose reduction techniques were utilized for thi s examination: 1. Automated exposure control 2. Adjustment of the mA and/or kV according to patient size 3. Use of iterative reconstruction technique FINDINGS: The central airways are patent. The heart size grossly appears unremarkable. Mild coronary artery ca lcifications. The ascending aorta measures 3.9 cm in transverse dimension. There is no evidence of fi lling defect identified in the main pulmonary arterial trunk and right and left main pulmonary arteri es and the visualized lobar, segmental branches of the pulmonary arteries. Mild bilateral lung emphys ematous changes. Faint airspace opacities bilateral lungs likely atelectasis or infiltrates. Small hu bcentimeter cystic structures identified in the liver, difficult to characterize. The spleen, adrenal s grossly appears unremarkable Moderate degenerative changes thoracic spine. IMPRESSION: 1. No evidence of pulmonary embolism. 2. Faint airspace opacities bilateral lungs likely atelectasis or infiltrates. Follow-up to resolmti on. 3. Small subcentimeter cystic structures identified in the liver, difficult to characterize. Electronically signed by: Amando Ervin MD (01/04/2022 9:21 AM) [id number]
== END ==
LOC: CT 08:02
PROVIDERS: ATTEND Physician Assistant Medical
DX: R91.8 Other nonspecific abnormal finding of lung field (principal); K76.89 Other specified diseases of liver; I25.10 Atherosclerotic heart disease of native coronary artery without angina pectoris; J43.9 Emphysema, unspecified; R06.02 Shortness of breath; J12.82 Pneumonia due to coronavirus disease 2019
CPT/HCPCS: 71275; Q9967

== ENCOUNTER → 2022-02-01 | Outpatient (CLI) | payer MEDICARE, OTHER ==
[~2022-02-01] MED LIST changes: -IOHEXOL 350 MG/ML 100 ML VIAL. IV ONE
--- NOTE | 2022-02-01 16:31 | RAD ---
EXAMINATION: XR HIP (WITH OR WITHOUT PELVIS)LEFT 1 VIEW CLINICAL HISTORY: Chronic left hip pain. TECHNIQUE: XR HIP (WITH OR WITHOUT PELVIS)LEFT 1 VIEW Number of Images/Views: 3 COMPARISON: None FINDINGS: Mild axial joint space narrowing in the left hip with collar osteophyte formation. Partially visualiz ed right total hip arthroplasty with heterotopic ossification.. Pubic symphysis and SI joints maintai bradley. Partially visualized lumbar degenerative changes with L4-5 fusion hardware. IMPRESSION: Mild degenerative changes left hip. . Electronically signed by: Damian Ortega DO (02/01/2022 4:29 PM) [id number]
== END ==
LOC: RAD 14:18
PROVIDERS: ATTEND Orthopaedic Surgery Sports Medicine
DX: M16.12 Unilateral primary osteoarthritis, left hip (principal); M25.752 Osteophyte, left hip; M25.852 Other specified joint disorders, left hip; Z96.641 Presence of right artificial hip joint
CPT/HCPCS: 73501